=== PATIENT | male | born 2000 | race Caucasian/White ===

== ENCOUNTER 2023-03-03 16:58 | Emergency (ER) | payer BC, SELFPAY ==
[2023-03-03 17:10] VITALS: BP 156/106; PULSE 60; RESP 16; TEMP 36.7; O2SAT 99; BMI 21.9
--- NOTE | 2023-03-03 17:15 | PC.NURSE ---
no room available in ED at this time, pts thumb assessed and dressed with non adhesive gauze and koband, bleeding controlled at this time. pt asked to sit in lobby while room is obtained
[2023-03-03 19:31] VITALS: BP 124/67; PULSE 71; O2SAT 100
--- NOTE | 2023-03-03 20:32 | HMH.EDWNDL ---
Discharge Plan Disposition Chief Complaint: Wound/Laceration Referrals Follow up/Referrals: Mela Plascencia [Primary Care Provider] - See instructions Clinical Impressions Clinical Impression: Laceration Instructions Patient Instructions: DI for Avulsion Laceration (Not Requiring Sutures) Discharge ED Provider: [place] (ED),Gonzalo Andre Wound/Laceration HPI General Chief Complaint: Wound/Laceration Stated Complaint: ao 03/03 @1600 lac to L thumb Time Seen by Provider: 03/03/23 20:10 Source of Information: Patient and Medical Record Limitations: No Limitations Description of Symptoms (Recalled from ER Triage Doc. by RN): pt comes in for laceration to left thumb. pt states that he was cutting a piece of metal with a razor blade and the razor slipped and cut his thumb. upon assessment pt has cut into nail bed and has a rather large chunk of the flesh missing form the finger. History of Present Illness HPI narrative: avulsion lac lt thumb today with razor - Onset (ago): hour(s) Extremity Location: Left: hand Place: home Patient tetanus UTD: No Context: sharp object use Associated symptoms: none PFSH PFSH Disclaimer: The information contained in this section may have been updated after the patient was seen, as this information can be updated by other users. Social History Smoking Status: Current every day smoker alcohol intake: never current occupational status: employed Travel in the last 8 weeks: None ROS Obtained: Yes All systems reviewed & no additional complaints except as documented Physical Exam General General appearance: alert Head Head exam: normocephalic Eye Eye exam: Present PERRL and EOMI ENT ENT exam: Present mucous membranes moist Neck Neck exam: Present trachea midline Respiratory Respiratory exam: Absent respiratory distress Cardiovascular Cardiovascular exam: Present regular rate Expanded Upper Extremity Exam Left: Hand exam: Present laceration (avulsion lac lt distal thumb with nail and distal thumb - no indications for sutures ); Absent subungual hematoma Neuromotor exam: Normal wrist extension Vascular exam: Normal radial pulse Neurological Exam Neurological exam: Present alert, oriented X3 and CN II-XII intact; Absent motor sensory deficit Skin Skin exam: Absent rash Medical Decision Making Medical Records Medical records reviewed: Yes I reviewed the patient's medical records. Rafael Inquiry Pt receiving controlled substance: No Vital Signs: 03/03/23 17:10 03/03/23 19:31 Temperature 98.0 F Temperature Source Oral Pulse Rate 71 Pulse Rate [Left] 60 Respiratory Rate 16 Blood Pressure 124/67 Blood Pressure [Right Arm] 156/106 H Blood Pressure Mean [Right Arm] 122 02 Sat by Pulse Oximetry 99 100 Lab Data Lab results reviewed: Yes I reviewed the patient's lab results. Medical Decision Narrative: avulsion lac distal lt thumb - will need to see pcp for follow up - no clinical indications for suturs - use bactroban Critical Care Time Critical Care Time Critical Care Time: No Attestation: On 03/03/23, the high probability of a clinically significant, sudden or life threatening deterioration of the following system(s) required my full and direct attention, intervention and personal management. The time I documented below is in addition to time spent performing reported procedures but includes the following listed in this critical care notation.
[2023-03-03 20:49] VITALS: BP 112/79; PULSE 63; RESP 16; TEMP 36.8; O2SAT 98
== END 2023-03-03 20:54 | disposition home or self-care (01) ==
PROVIDERS: Emergency Provider Emergency Medicine; PCP Pediatrics
DX: S61.012A Laceration without foreign body of left thumb without damage to nail, initial encounter (principal); W26.8XXA Contact with other sharp object(s), not elsewhere classified, initial encounter; F17.200 Nicotine dependence, unspecified, uncomplicated
CPT/HCPCS: 90471; 90714; 96372; 99283; 99284

== ENCOUNTER 2024-07-23 08:31 | Emergency (ER) | payer SELFPAY ==
--- NOTE | 2024-07-23 08:37 | US_ITS ---
PROCEDURE INFORMATION: Exam: US Scrotum and Artery or Vein of the Abdominal and/or Reproductive Organs, Limited Scrotum Exam date and time: 07/23/2024 9:07 AM Age: 24 years old Clinical indication: Scrotum pain; Additional info: B/l testicle pain TECHNIQUE: Imaging protocol: Real-time ultrasound of the scrotum. Real-time duplex ultrasound scan of the arterial or venous flow with leroy scale, color Doppler flow and spectral waveform analysis with image documentation. Limited Duplex exam focused of the scrotum. Duplex exam was performed to evaluate for torsion and other vascular conditions. COMPARISON: No relevant prior studies available. FINDINGS: Right testicle: Peak systolic velocity in the right testis 5 cm/s. both arterial and venous flow documented. Right testis measures 3.8 x 3.2 cm Left testicle: Peak systolic velocity in the left testis 5 cm/s. Both arterial and venous flow documented. Left testis measures 3.7 x 2.2 x 2.7 cm. Heterogeneous hypoechoic area in the inferior aspect of the left testis measures 1.85 x 1.1 cm. It demonstrates increased blood flow. Unknown etiology. Recommend urology consult.. Epididymides: Right epididymis 1.5 x 0.6 x 0.7 cm. Left epididymis 1.2 x 0.7 x 0.7 cm Scrotum/soft tissues: Normal. IMPRESSION: Heterogeneous hypoechoic area in the inferior aspect of the left testis measures 1.85 x 1.1 cm. It demonstrates increased blood flow. Unknown etiology. Recommend urology consult.. No evidence of torsion
[2024-07-23 08:38] VITALS: BP 145/107; PULSE 99; O2SAT 100
[2024-07-23 08:43] VITALS: BP 145/107; PULSE 84; RESP 16; TEMP 36.8; O2SAT 99; BMI 22.6
--- NOTE | 2024-07-23 08:46 | HMH.EDGENADL ---
Discharge Plan Disposition Patient Disposition: Home, Self-Care Chief Complaint: Urogenital-Male Referrals Follow up/Referrals: Provider,MD Giles [Primary Care Provider] - See instructions Aurelio Milligan MD [Staff Physician] - See instructions Activity Restrictions/Add. Instructions Additional Instructions/Restrictions: At this time it was felt you are safe to be discharged home. If new or worsening symptoms please do not hesitate to return the emergency department. Please call and schedule appoint with Dr. Milligan as soon as you are able. For pain please take Tylenol 1000 mg and ibuprofen 600 mg every 6 hours, it is okay to take them at the same time with a little bit of food. Clinical Impressions Clinical Impression: Pain in scrotum, Abnormal finding on diagnostic imaging of left testicle Instructions Patient Instructions: DI for Urinary Tract Infection (UTI), DI for Urinary Tract Infection in Children Print Language Print Language: French Discharge ED Provider: Alek Lee General Adult HPI General Chief complaint: Urogenital-Male Stated complaint: testicle pain Time Seen by Provider: 07/23/24 08:33 History of Present Illness HPI narrative: Patient is a 24-year-old male with no pertinent past medical history who presents emergency department for evaluation of testicular pain. Onset was acute, 7 AM this morning, bilateral lower testicles, moderate to severe in intensity. He states that he has had this pain a few times before however it is very transient and resolved spontaneously however due to persistent symptoms he presents here for continued evaluation. States he is not sexually active, no dysuria, normal stooling. No other acute complaints at this time Related Data Allergies Allergy/AdvReac Type Severity Reaction Status Date / Time No Known Allergies Allergy Verified 07/23/24 08:48 [facility] Disclaimer: The information contained in this section may have been updated after the patient was seen, as this information can be updated by other users. Social History (Updated 03/03/23 @ 20:39 by Gonzalo Leos (ED)MD) Smoking Status: Current every day smoker alcohol intake: never current occupational status: employed Travel in the last 8 weeks: None ROS Obtained: Yes Systems reviewed as appropriate & no additional complaints except as documented Physical Exam General General appearance: alert and in no apparent distress Head Head exam: atraumatic and normocephalic Eye Eye exam: Present PERRL ENT ENT exam: Present mucous membranes moist Neck Neck exam: Present normal inspection Chest Chest inspection: Present normal inspection and symmetric chest wall rise Respiratory Respiratory exam: Absent respiratory distress Cardiovascular Cardiovascular exam: Present regular rate and normal rhythm Abdominal Exam Abdominal exam: Present soft and other (Attending Radiologist present, bilateral testicular tenderness, no significant swelling or overlying discoloration, no palpable masses in the inguinal areas bilaterally.); Absent tenderness Extremities Exam Extremities exam: Present normal inspection Neurological Exam Neurological exam: Present alert Psychiatric Psychiatric exam: Present normal affect Skin Skin exam: Present warm and dry Medical Decision Making Rafael Inquiry Pt receiving controlled substance: No Vital Signs: 07/23/24 08:38 07/23/24 08:43 07/23/24 09:00 Temperature 98.3 F Temperature Source Oral Pulse Rate 99 H 68 Pulse Rate [Left] 84 Respiratory Rate 16 Blood Pressure 145/107 H 145/93 H Blood Pressure [Right Arm] 145/107 H Blood Pressure Mean [Right Arm] 119 Blood Pressure Source [Right Arm] Automatic Cuff Blood Pressure Position [Right Arm] Sitting 02 Sat by Pulse Oximetry 100 99 100 Oxygen Delivery Method Room Air Room Air Room Air Lab Data Lab Results 07/23/24 09:41: Urine Color Yellow, Urine Appearance Clear, Urine pH 7.5, Ur Specific [place] 1.020, Urine Protein Trace, Urine Glucose (UA) Negative, Urine Ketones Negative, Urine Blood Negative, Urine Nitrate Negative, Urine Bilirubin Negative, Urine Urobilinogen 0.2, Ur Leukocyte Esterase Negative, Urine RBC None, Urine WBC Occasional, Ur Squamous Epith Cells Occasional, Urine Bacteria Trace Orders (Tests/Meds): ED MEDICATIONS Discontinued Medications Generic Name Dose Route Start Last Admin Trade Name Freq PRN Reason Stop Dose Admin Acetaminophen 1,000 mg 07/23/24 08:41 07/23/24 08:49 Acetaminophen 500mg Tab PO 07/23/24 08:42 1,000 mg ONCE ONE Administration Ketorolac Tromethamine 30 mg 07/23/24 08:41 07/23/24 08:50 Ketorolac 30mg/Ml Vial IM 07/23/24 08:42 30 mg ONCE ONE Administration ORDERS Category Date Time Status UA [Urinalysis and Microscopic] Stat Lab 07/23/24 09:41 Completed Testicular US [US Testicular] Stat Ultrasound 07/23/24 08:37 Completed Medical Decision Narrative: In summary patient is a 24-year-old male with past medical history described above who presents to the emergency department for evaluation of bilateral testicular pain. Patient is hemodynamically stable nontoxic-appearing upon arrival, afebrile. Differential diagnosis includes torsion, epididymitis, orchitis, among others. Workup will be conducted with urinalysis, testicular torsion ultrasound. Initial interventions include Tylenol, Toradol. Initial workup reviewed by me, he urinalysis interpreted by me not consistent with infection. Scrotal ultrasound demonstrates heterogenous hypoechoic area in the inferior aspect of the left testes with increased blood flow of unknown etiology 1.85 x 1.1 cm for which urologic consult was recommended. I have no concern for infection and with increased vascularity differential includes malignancy, among others. I feel that all emergent pathology requiring immediate intervention has been ruled out at this point given that torsion has been excluded. Upon repeat evaluation patient had acceptable partial resolution of pain and the importance of urologic follow-up was stressed upon him, he will call this Thursday morning and facilitate clinic follow-up and was given multiple return precautions and verbalized understanding. Critical Care Critical Care Time Critical Care Time: No
[2024-07-23] MEDS: ACETAMINOPHEN 500MG TAB 1000 MG PO (08:49)
[2024-07-23] MEDS: KETOROLAC 30MG/ML VIAL 30 MG IM (08:50)
[2024-07-23 09:00] VITALS: BP 145/93; PULSE 68; O2SAT 100
--- NOTE | 2024-07-23 09:20 | PC.NURSE ---
Pt gone to u/s via wheelchair
[2024-07-23 09:44] LABS: Microscopic, Urine URINE MICROSCOPIC (MICROSCOPIC)
--- NOTE | 2024-07-23 09:44 | PC.NURSE ---
Pt returned to room
[2024-07-23 09:57] LABS: Appearance,Urine CLEAR (Clear); Bilirubin,Urine Negative (Negative); Blood, Urine Negative (Negative); Color,Urine YELLOW (Yellow); Glucose,Urine (UA) Negative (Negative); Ketones,Urine Negative (Negative); Leukocyte Esterase,Urine Negative (Negative); Nitrate,Urine Negative (Negative); PH,Urine 7.5 (5.0-8.5); Protein,Urine TRACE (Negative); Urobilinogen,Urine 0.2 EU/dl (0.2)
--- NOTE | 2024-07-23 10:11 | PC.NURSE ---
I rounded on the pt, no new complaints. no needs voiced. call brown in reach.
[2024-07-23 10:38] LABS: Bacteria,Urine Trace /lpf; Squamous Epithelial Cell,Urine Occasional #/hpf (0-5); WBC,Urine Occasional #/hpf (0-3)
[2024-07-23 10:47] VITALS: BP 145/93; PULSE 67; RESP 18; TEMP 36.9; O2SAT 97
== END 2024-07-23 10:48 | disposition home or self-care (01) ==
PROVIDERS: Emergency Provider Emergency Medicine
DX: N50.82 Scrotal pain (principal); R93.812 Abnormal radiologic findings on diagnostic imaging of left testicle
CPT/HCPCS: 76870; 81001; 96372; 99284; J1885